=== PATIENT | female | born 1980 | race Caucasian/White ===

== ENCOUNTER 2016-10-30 12:27 | Emergency (ER) | payer MEDICAID ==
[2016-10-30 13:00] VITALS: TEMP 98.4; BMI 28.3
--- NOTE | 2016-10-30 13:49 | DIRPT ---
CLINICAL DATA: Fall on ice yesterday and hit head. Headache. Initial encounter. EXAM: CT HEAD WITHOUT CONTRAST TECHNIQUE: Contiguous axial images were obtained from the base of the skull through the vertex without intravenous contrast. COMPARISON: 12/13/2011 FINDINGS: Brain: No evidence of acute infarction, hemorrhage, extra-axial collection, ventriculomegaly, or mass effect. Vascular: No hyperdense vessel or unexpected calcification. Skull: Negative for fracture or focal lesion. Sinuses/Orbits: No acute findings. Other: None. IMPRESSION: Negative noncontrast head CT. Electronically Signed By: Aiden Farooq M.D. On: 10/30/2016 13:46
--- NOTE | 2016-10-30 14:13 | DIRPT ---
CLINICAL DATA: Neck pain since yesterday after slipping on ice. Initial encounter. EXAM: CERVICAL SPINE - COMPLETE 4+ VIEW COMPARISON: Plain films the cervical spine 09/06/2015. FINDINGS: There is no evidence of cervical spine fracture or prevertebral soft tissue swelling. Alignment is normal. Mild anterior endplate spurring is seen at C3-4, unchanged. No other significant bone abnormalities are identified. IMPRESSION: Negative cervical spine radiographs. Electronically Signed By: Hernan Pfeiffer M.D. On: 10/30/2016 14:10
--- NOTE | 2016-10-30 14:14 | DIRPT ---
CLINICAL DATA: Neck, mid back and lower back pain since yesterday after slipping on ice EXAM: LUMBAR SPINE - COMPLETE 4+ VIEW COMPARISON: None; correlation CT abdomen pelvis 03/31/2016 FINDINGS: Osseous mineralization normal. Vertebral body and disc space heights maintained. Hypoplastic last LEFT rib with 5 additional non rib bearing type lumbar vertebra. Vertebral body heights maintained without fracture or subluxation. No bone destruction or spondylolysis. SI joints symmetric. IMPRESSION: No acute lumbar spine abnormalities. Electronically Signed By: Brooks Huff M.D. On: 10/30/2016 14:11
--- NOTE | 2016-10-30 14:48 | EDPRACDOC ---
- General Information Chief Complaint: Head Injury Stated Complaint: SLIPPED & FELL HIT BACK OF HEAD C/O HEADACHE Time Seen by Provider: 10/30/16 14:37 Information Source: Patient Home Medications: Home Medications Lactobacillus Acidophilus [Acidophilus] 1 each PO DAILY 10/27/14 Ibuprofen Tablet [Motrin] 800 mg PO Q6-8H PRN #30 tab 10/28/14 Ciprofloxacin HCl [Cipro] 500 mg PO BID 03/31/16 Cyclobenzaprine HCl [Flexeril] 10 mg PO TID PRN #20 tablet 03/31/16 Ketoprofen 50 mg PO BID PRN #30 capsule 03/31/16 Multivit-Min/Folic Acid/Biotin [Hair, Skin & Nails Caplet] 1 tab PO DAILY Amoxicillin Trihydrate [Amoxicillin] 500 mg PO TID #30 tab 10/30/16 Cyclobenzaprine HCl [Flexeril] 10 mg PO TID #21 tab 10/30/16 Meloxicam [Mobic] 7.5 mg PO BID #20 tab 10/30/16 Allergies/Adverse Reactions: Allergies Allergy/AdvReac Type Severity Reaction Status Date / Time No Known Allergies Allergy Verified 10/30/16 12:57 - History of Present Illness Onset: TODAY HPI: PT PRESENTS TODAY WITH THROBBING KRISHNA AND NECK/BACK PAIN AFTER MECHANICAL FALL. SLIPPED ON ICE. DENIES LOC. DENIES DIZZINESS, BLURRED VISION, CP, SHOB, ABD PAIN, N/V/D. PT HAS SEPARATE COMPLAINT OF URI S/S X 1 WEEK W/OUT FEVER. Location: Reports: Generalized Pain Quality: Reports: Moderate, Throbbing Relevant History of: Reports: None Associated Signs and Symptoms: Reports: Denies Symptoms ED Past Medical History - History Reviewed Yes Nurses notes reviewed and agree except as marked - Patient Medical History GI/ History: Reports: Ulcer Musculoskeletal History: Reports: Arthritis Systemic History: Reports: Anemia. Denies: Cancer Surgical History: Denies: Hysterectomy - Family Medical History Reports: Hypertension (GRANDMOTHER), Diabetes (GRANDMOTHER), Cardiac Disorders ( GRANDMOTHER) - Social Medical History Smoking Status: Current some day smoker EDM Review of Systems - Review of Systems ROS Negative Except as Marked: Yes All systems reviewed and were negative except as marked Constitutional: No Symptoms Reported Eyes: No Symptoms Reported Ears: No Symptoms Reported Throat: No Symptoms Reported Nose: Congestion Respiratory: No Symptoms Reported Cardiovascular: No Symptoms Reported Gastrointestinal: No Symptoms Reported Neurological: Headache Musculoskeletal: Back, Neck Integumentary: No Symptoms Reported - Physical Exam Constitutional: Alert (Awake), No apparent distress Oriented to: Time, Person, Place Last recorded Vital Signs: Last Vital Signs Temp 98.4 F 10/30/16 12:57 Pulse 70 10/30/16 14:10 Resp 16 10/30/16 14:10 BP 134/75 10/30/16 14:10 Pulse Ox 96 10/30/16 14:10 Oxygen Pulse Oxygen Saturation 96 O2 Device Room Air Oxygen Flow Rate Fraction of Inspired Oxygen ( FIO2) - HEENT Head: Normal Eye Exam: Normal Oropharynx: Normal Tympanic Membrane: Normal ENT EAC: Normal Nose: Congestion Neck: Normal, Denies Pain, Midline - Respiratory/Cardiovascular Respiratory: Normal - CTA Cardiovascular: Normal - GI Palpation: Normal Tenderness: Non tender - Musculoskeletal Back: Normal Extremities: Normal - Integumentary Skin: Normal Lymphatics: Normal - Neurologic Cerebellar: Normal Mood Description: Normal Thought: Coherent Perception: Normal Decision Time to Discharge: 14:45 - Departure Disposition: Home Condition: Stable Final Diagnosis: Concussion with no loss of consciousness Sinusitis Qualifiers: Sinusitis location: unspecified location Chronicity: acute Recurrence: not specified as recurrent Qualified Code(s): J01.90 - Acute sinusitis, unspecified Instructions: Concussion (ED) Education/Counseling Given To: Patient Education/Counseling Given Regarding: Diagnosis, Treatment, Follow Up Referrals: Julio Robledo MD [Primary Care Provider] - One Week Prescriptions: Amoxicillin Trihydrate [Amoxicillin] 500 mg PO TID #30 tab Cyclobenzaprine HCl [Flexeril] 10 mg PO TID #21 tab Meloxicam [Mobic] 7.5 mg PO BID #20 tab Forms: Excuse Note Additional Instructions: REST AND PLENTY OF FLUIDS. EXPECT TO BE SORE FOR SEVERAL DAYS. FOLLOW UP WITH PCP IN 1-2 WEEKS FOR CONCUSSION RE-EVALUATION. IT IS ADVISED THAT YOU DO NOT DRIVE OR PLAY SPORTS UNTIL CLEARED BY A PHYSICIAN.
[2016-10-30 14:57] VITALS: BP 136/83; PULSE 80
== END 2016-10-30 14:56 | disposition home or self-care (01) ==
LOC: ED 12:27 → EDMC 14:56
DX: S06.0X0A Concussion without loss of consciousness, initial encounter (principal); W00.0XXA Fall on same level due to ice and snow, initial encounter; Y93.9 Activity, unspecified
CPT/HCPCS: 70450; 72050; 72110; 99282